=== PATIENT | female | born 1990 | race Caucasian/White ===

== ENCOUNTER 2017-10-04 18:51 | Outpatient (CLI) | payer MEDICAID ==
[2017-10-04] MEDS ORDERED: LACTATED RINGERS 500 ML IV ONE (19:08)
[2017-10-04 19:36] VITALS: BP 119/61
[2017-10-04] MEDS ORDERED: BRETHINE IVP PRN (20:43)
[2017-10-04] MEDS ORDERED: STADOL IV PRN (20:43)
[2017-10-04] MEDS ORDERED: SUBLIMAZE IV PRN (20:43)
[2017-10-04] MEDS ORDERED: PHENERGAN PO PRN (20:43)
[2017-10-04] MEDS ORDERED: XYLOCAINE 2% INFILTRATI ONE (20:43)
[2017-10-04] MEDS ORDERED: POLYCILLIN/NS 2 GM/100 ML 2 GM/100 ML BAG IV ONE (20:43)
[2017-10-04] MEDS ORDERED: NARCAN 0.4 MG/1 ML IV PRN (20:43)
[2017-10-04] MEDS ORDERED: ePHEDrine SULFATE IV PRN (20:43)
[2017-10-04] MEDS ORDERED: MINERAL OIL PO PRN (20:43)
[2017-10-04] MEDS ORDERED: BRETHINE SUB-Q PRN (20:43)
[2017-10-04 20:44] LABS: Bacteria,Urine 1+ /HPF (Negative); Bilirubin,Urine NEG (Negative); Blood,Urine NEG (Negative); Color,Urine Yellow (Yellow); Mucus,Urine FEW /HPF; Protein,Urine <15 mg/dL mg/dL (Negative); RBC,Urine < 1.0 /HPF (0.0-6.0); Urobilinogen,Urine < 2.0 mg/dL (<2.0)
[2017-10-04] MEDS ORDERED: PITOCin/NS 20 UNIT/1000ML DRIP 20 UNITS/1,000 ML BAG IV SCH (21:00)
[2017-10-04] MEDS ORDERED: LACTATED RINGERS 1,000 ML IV SCH (21:00)
[2017-10-04] MEDS ORDERED: PITOCin/NS 30 UNIT/500ML 30 UNITS/500 ML BAG IV SCH ×2 (21:00)
== END 2017-10-04 21:41 | disposition home or self-care (01) ==
LOC: TRG 18:51
PROVIDERS: ATTEND Obstetrics & Gynecology
DX: O47.02 False labor before 37 completed weeks of gestation, second trimester (principal); Z3A.24 24 weeks gestation of pregnancy
CPT/HCPCS: 59025; 81001

== ENCOUNTER 2018-01-14 03:53 | Inpatient (IN) | payer MEDICAID ==
--- NOTE | 2018-01-14 06:06 | Ultrasound Report ---
FINAL REPORT EXAM: US OB BPP WO NON-STRESS HISTORY: NON-REACTIVE NST TECHNIQUE: A limited OB sonogram was obtained for evaluation of the biophysical profile. FINDINGS: For breathing movements, a score of 2 out of 2 was obtained. For movements, a score of 2 out of 2 was obtained. For posture in tone, a score of 2 out of 2 was obtained. For qualitative amniotic fluid volume, a score of 2 out of 2 was obtained. The total biophysical profile score is 8 out of 8. The heart rate is 128 BPM. IMPRESSION: Biophysical profile score of 8/8. heart rate is 128 BPM.
[2018-01-14] MEDS ORDERED: SUBLIMAZE IV ONE (07:07)
[2018-01-14] MEDS ORDERED: XYLOCAINE 2% INFILTRATI NR (07:30)
[2018-01-14] MEDS ORDERED: ZOFRAN IV PRN ×2 (07:30→15:29)
[2018-01-14] MEDS ORDERED: SUBLIMAZE IV PRN (07:30)
[2018-01-14] MEDS ORDERED: STADOL IV PRN (07:30)
[2018-01-14] MEDS ORDERED: ePHEDrine SULFATE IV PRN ×2 (07:30→09:30)
[2018-01-14] MEDS ORDERED: PITOCin/NS 20 UNIT/1000ML DRIP 20 UNITS/1,000 ML BAG IV SCH ×3 (08:00→16:00)
[2018-01-14] MEDS ORDERED: BRETHINE IVP PRN (08:00)
[2018-01-14] MEDS ORDERED: LACTATED RINGERS 1,000 ML IV SCH (08:00)
[2018-01-14] MEDS ORDERED: MINERAL OIL PO PRN (08:00)
[2018-01-14] MEDS ORDERED: NARCAN 0.4 MG/1 ML IV PRN (08:00)
[2018-01-14] MEDS ORDERED: BRETHINE SUB-Q PRN (08:00)
[2018-01-14] MEDS ORDERED: PITOCin/NS 30 UNIT/500ML 30 UNITS/500 ML BAG IV SCH (08:00)
[2018-01-14 08:06] LABS: Hematocrit 35.1 % (30.3-42.9); Hemoglobin 11.9 gm/dl (10.1-14.3); Mean Corpuscular HGB Conc 34 % (30-34); Mean Corpuscular Hemoglobin 28 pg (28-32); Mean Corpuscular Volume 84 fl (79-97); Platelet Count 157 K/mm3 (140-440); Red Blood Count 4.17 M/mm3 (3.65-5.03); Red Cell Distribution Width 15.7 % (13.2-15.2)
[2018-01-14] MEDS: LACTATED RINGERS 1,000 ML IV SCH ×4 (08:12→14:51)
--- NOTE | 2018-01-14 09:11 | Anesthesia Consultation ---
Anesthesia Consult and Med Hx Date of service: 01/14/18 - Airway Anesthetic Teeth Evaluation: Good ROM Head & Neck: Adequate Mental/Hyoid Distance: Adequate Mallampati Class: Class II Intubation Access Assessment: Probably Good - Pre-Operative Health Status ASA Pre-Surgery Classification: ASA2 Proposed Anesthetic Plan: Epidural, Spinal - Pulmonary Hx Asthma: No COPD: No Hx Pneumonia: Yes (10yrs ago) - Cardiovascular System Hx Hypertension: No - Central Nervous System Hx Seizures: No Hx Psychiatric Problems: Yes (depression) - Endocrine Hx Renal Disease: No Hx End Stage Renal Disease: No Hx Hypothyroidism: No Hx Hyperthyroidism: No - Hematic Hx Anemia: No Hx Sickle Cell Disease: No - Other Systems Hx Alcohol Use: No
[2018-01-14] MEDS ORDERED: NARCAN 2 MG/2 ML IV PRN (09:30)
[2018-01-14] MEDS ORDERED: fentaNYL-BUPIV 2 MCG/ML-0.125% 200 MCG/100 ML BAG EPIDURAL SCH (10:00)
[2018-01-14] MEDS ORDERED: PNEUMOVAX 23 IM ONE (12:00)
--- NOTE | 2018-01-14 15:24 | History and Physical Report ---
History of Present Illness Date of examination: 01/14/18 Date of admission: 01/14/18 03:54 Chief complaint: contractions History of present illness: This is a 28 yo at 38+6 weeks admitted to labor and delivery for active labor. She was checked and progressed to 6cm from 4cm. She is a patient of [facility] since 10 weeks. Problem list include nausea, UTi with E.coli treated. Patient on zoloft for depression Past History Past Medical History: hematologic disorders, other Past Surgical History: no surgical history Family/Genetic History: diabetes, other (hypercholesterolemia ) Social history: no significant social history, . denies: smoking, alcohol abuse, prescription drug abuse - Obstetrical History Expected Date of Delivery: 01/22/18 Actual Gestation: 38 Week(s) 6 Day(s) : 2 Para: 1 Hx # Term Pregnancies: 1 Number of Pregnancies: 0 Spontaneous Abortions: 0 Induced : 0 Number of Living Children: 1 Medications and Allergies Allergies Allergy/AdvReac Type Severity Reaction Status Date / Time No Known Allergies Allergy Unverified 10/04/17 19:07 Home Medications Medication Instructions Recorded Confirmed Last Taken Type Vit-Fe Fumar-FA [ 1 tab PO QDAY 01/14/18 01/14/18 01/13/18 History Vitamin] Sertraline [Zoloft] 50 mg PO QDAY 01/14/18 01/14/18 2 Months Ago History ~11/14/17 Active Meds: Active Medications Butorphanol Tartrate (Stadol) 2 mg IV Q2H PRN PRN Reason: Labor Pain Ephedrine Sulfate (Ephedrine Sulfate) 10 mg IV Q2M PRN PRN Reason: Hypotension Fentanyl (Sublimaze) 100 mcg IV Q2H PRN PRN Reason: Labor Pain Last Admin: 01/14/18 08:14 Dose: 100 mcg Lactated Ringer's (Lactated Ringers) 1,000 mls @ 125 mls/hr IV DIRECT SARAH Last Admin: 01/14/18 14:51 Dose: 125 mls/hr Oxytocin/Sodium Chloride (Pitocin/Ns 20 Unit/1000ml Drip) 20 units in 1,000 mls @ 125 mls/hr IV DIRECT SARAH Last Admin: 01/14/18 15:14 Dose: 125 mls/hr Oxytocin/Sodium Chloride (Pitocin/Ns 30 Unit/500ml) 30 units in 500 mls @ 4 mls /hr IV TITR SARAH; Protocol Last Admin: 01/14/18 13:40 Dose: 4 ml/hr, 4 mls/hr Fentanyl/Bupivacaine/Sodium Chlor (Fentanyl-Bupiv 2 Mcg/Ml-0.125%) 200 mcg in 100 mls @ 12 mls/hr EPIDURAL TITR SARAH; Protocol Last Admin: 01/14/18 09:53 Dose: 12 mls/hr Lidocaine (Xylocaine 2%) 20 ml INFILTRATI ONCE NR Stop: 01/15/18 07:29 Mineral Oil (Mineral Oil) 30 ml PO QHS PRN PRN Reason: Constipation Naloxone HCl (Narcan 0.4 Mg/1 Ml) 0.1 mg IV Q2MIN PRN PRN Reason: Res Rate </= 8 or 02 SAT < 92% Naloxone HCl (Narcan 2 Mg/2 Ml) 0.2 mg IV Q5M PRN PRN Reason: Respiratory sedation Ondansetron HCl (Zofran) 4 mg IV Q8H PRN PRN Reason: Nausea And Vomiting Terbutaline Sulfate (Brethine) 0.25 mg SUB-Q ONCE PRN PRN Reason: Hyperstimulation/Hypertonicity Terbutaline Sulfate (Brethine) 0.25 mg IVP ONCE PRN PRN Reason: Hyperstimulation/Hypertonicity Review of Systems All systems: negative Genitourinary: contractions - Vital Signs Vital signs: Vital Signs Temp Resp 97.8 F 18 01/14/18 04:04 01/14/18 04:04 Temp Pulse Resp BP Pulse Ox 96.2 F L 104 H 20 179/63 97 01/14/18 07:24 01/14/18 15:21 01/14/18 08:14 01/14/18 15:16 01/14/18 15:21 - Physical Exam Breasts: Positive: normal Cardiovascular: Regular rate, Normal S1 Lungs: Positive: Clear to auscultation, Normal air movement Abdomen: Positive: normal appearance, soft, normal bowel sounds. Negative: distention, tenderness, guarding Genitourinary (Female): Positive: normal external genitalia, normal perenium Vulva: both: normal Vagina: Positive: normal moisture Cervix: Positive: lesion Uterus: Positive: normal size Anus/Rectum: Positive: normal perianal skin, heme negative Extremities: Positive: normal Deep Tendon Reflex Grade: Normal +2 - Obstetrical FHR: category 1 Cervical Dilatation: 6 Results Result Diagrams: 01/14/18 07:45 Abnormal lab results 01/14/18 Range/Units 07:45 RDW 15.7 H (13.2-15.2) % All other labs normal. Assessment and Plan A/P IUP 38+6 weeks Active labor GBS neg offer epidural expect vaginal delivery
[2018-01-14] MEDS ORDERED: PHENERGAN PR PRN (15:29)
[2018-01-14] MEDS ORDERED: BENADRYL PO PRN (15:29)
[2018-01-14] MEDS ORDERED: DULCOLAX PR PRN (15:29)
[2018-01-14] MEDS ORDERED: ANUCORT-HC PR PRN (15:29)
[2018-01-14] MEDS ORDERED: PERCOCET 5/325 PO PRN (15:29)
[2018-01-14] MEDS ORDERED: PHENERGAN PO PRN (15:29)
[2018-01-14] MEDS ORDERED: TUCKS PAD TP PRN (15:29)
[2018-01-14] MEDS ORDERED: LANSINOH TP PRN (15:29)
[2018-01-14] MEDS ORDERED: MILK OF MAGNESIA PO PRN (15:29)
[2018-01-14] MEDS ORDERED: TYLENOL PO PRN (15:29)
--- NOTE | 2018-01-14 15:45 | Procedure Note ---
OB Delivery Note - Delivery Date of Delivery: 01/14/18 Surgeon: DANA OCHOA Estimated blood loss: 300cc - Vaginal Delivery presentation: vertex Delivery position: OA Intrapartum events: none Delivery induction: none Delivery augmentation: pitocin Delivery monitor: external FHT, external uterine Route of delivery: Delivery placenta: spontaneous Delivery cord: 3 umbilical vessels Episiotomy: none Delivery laceration: 1st degree Delivery repair: vicryl Anesthesia: epidural Delivery comments: Patient was noted to be c/c/+2. She commenced to pushing and delivered a viable male at 1507 . weight is 7 pounds 6.9 oz . Apgars 8 and 9 . The baby delivered shoulders easily and placed on baby skin to skin with cord clamped and cut. nasopharynx and orophaynx suctioned. Placenta delivered intact with three vessel cord at 1510 Survery of perineum revealed a first degree preineum and periurethral. 2-0 vicryl used to repair. Excellent hemostasis. EBL is 300 cc. - A at 1 minute: 8 at 5 minutes: 9 Gender: Male
[2018-01-14] MEDS ORDERED: SODIUM CHLORIDE FLUSH SYRINGE 10 ML IV NR (16:00)
[2018-01-14] MEDS: MOTRIN PO SCH ×2 (18:00→22:00)
[2018-01-14] MEDS: NORCO 5/325 PO PRN (22:25)
[2018-01-14] MEDS: COLACE PO SCH (22:25)
[2018-01-15 03:32] LABS: Hematocrit 28.4 % (30.3-42.9); Hemoglobin 9.7 gm/dl (10.1-14.3)
[2018-01-15] MEDS: COLACE PO SCH ×2 (12:42→21:40)
[2018-01-15] MEDS: MOTRIN PO SCH ×3 (12:42→23:47)
[2018-01-15] MEDS: PRENATAL VITAMIN PO SCH (12:42)
--- NOTE | 2018-01-15 16:36 | Progress Note ---
Assessment and Plan O: VSS AF PP H/H: 9.7/28.4 A: Stable PP Day 1 Anemia P: Iron BID D/c in am Subjective - Subjective Date of service: 01/15/18 Patient reports: appetite normal, voiding normally, pain well controlled, ambulating normally : doing well, nursing well, bottle feeding Objective - Vital Signs Latest vital signs: Vital Signs Temp Pulse Resp BP BP Pulse Ox 01/15/18 12:23 98.7 F 83 20 111/61 96 01/15/18 07:32 98.2 F 86 20 103/63 96 01/15/18 00:00 98.2 F 71 18 119/65 96 01/14/18 20:00 98.7 F 78 18 116/63 97 01/14/18 17:05 98.8 F 71 18 127/75 98 01/14/18 16:54 68 98 01/14/18 16:49 68 128/74 98 01/14/18 16:41 78 97 Intake and Output 01/15/18 01/15/18 01/15/18 06:59 14:59 22:59 Intake Total 240 600 Output Total 500 Balance 240 100 Intake: Oral 240 600 Output: Urine 500 Void 500 Other: Total, Intake Amount 240 240 Total, Output Amount 500 # Voids Void 1 1 - Exam Breasts: Present: deferred Abdomen: Present: normal appearance, soft. Absent: distention, tenderness Uterus: Present: normal, firm, fundal height below umbilicus. Absent: bogginess Extremities: Present: normal, edema (trace) - Labs Labs: Abnormal lab results 01/15/18 Range/Units 03:03 Hgb 9.7 L (10.1-14.3) gm/dl Hct 28.4 L D (30.3-42.9) %
--- NOTE | 2018-01-15 16:40 | Discharge Summary ---
Providers - Providers Date of Admission: 01/14/18 03:54 Date of discharge: 01/16/18 Attending physician: DANA OCHOA MD Primary care physician: DANA OCHOA MD Hospitalization Reason for admission: active labor, IUP at term Delivery: Episiotomy: none Laceration: 1st degree Other procedures: none complications: none Discharge diagnosis: IUP at term delivered baby: male Condition at discharge: Good Disposition: DC-01 TO HOME OR SELFCARE Plan - Discharge Medications Prescriptions: Ibuprofen [Motrin 600 MG tab] 600 mg PO Q6H #30 tablet - Provider Discharge Summary Activity: routine, no sex for 6 weeks, no heavy lifting 4 weeks, no strenuous exercise Diet: routine Instructions: routine Additional instructions: [] Smoking cessation referral if applicable(refer to patient education folder for contact #) [] Refer to [facility] Booklet Call your doctor immediately for: * Fever > 100.5 * Heavy vaginal bleeding ( >1 pad per hour) * Severe persistent headache * Shortness of breath * Reddened, hot, painful area to leg or breast * Drainage or odor from incision. * Keep incision clean and dry at all times and follow doctor's instructions regarding bathing/showering - Follow up plan Follow up: DANA OCHOA MD [Primary Care Provider] - 7 Days (RTO 4 weeks PP)
[2018-01-15] MEDS: NORCO 5/325 PO PRN (16:50)
[2018-01-15] MEDS: FEOSOL PO SCH (21:40)
[2018-01-16] MEDS: MOTRIN PO SCH ×2 (05:06→12:35)
[2018-01-16 11:42] LABS: Hematocrit 29.5 % (30.3-42.9); Hemoglobin 9.7 gm/dl (10.1-14.3)
[2018-01-16] MEDS ORDERED: SUDAFED PO PRN (12:34)
[2018-01-16] MEDS: PRENATAL VITAMIN PO SCH (12:35)
[2018-01-16] MEDS: FEOSOL PO SCH (12:35)
[2018-01-16] MEDS ORDERED: PROVENTIL IH PRN (12:35)
[2018-01-16] MEDS: COLACE PO SCH (12:35)
[2018-01-16] MEDS ORDERED: BENADRYL PO PRN (12:36)
--- NOTE | 2018-01-16 12:39 | Event Note ---
Date: 01/16/18 On-call MD contacted by THA Nolen for this patient with report of dizziness with ambulation and waking. Pt interviewed. She reports feeling dizziness during labor when she received an IV medicine and then since the delivery with ambulation. She also reports dyspnea and feeling like she cannot fill her lungs. She denies any medical history. AVSS. Plan to begin Benadryl and Sudafed. Discharge currently held. Albuterol Neb for dyspnea. Continue to closely monitor clinical status.
[2018-01-16] MEDS: CLARITIN PO SCH (13:38)
[2018-01-16] MEDS ORDERED: FIORICET PO PRN (17:18)
[2018-01-17] MEDS: MOTRIN PO SCH ×5 (01:04→11:19)
[2018-01-17 10:32] VITALS: BP 120/80
[2018-01-17] MEDS: PRENATAL VITAMIN PO SCH (11:10)
[2018-01-17] MEDS: CLARITIN PO SCH (11:10)
[2018-01-17] MEDS: FEOSOL PO SCH ×2 (11:10→11:11)
[2018-01-17] MEDS: COLACE PO SCH ×2 (11:11→11:12)
--- NOTE | 2018-01-17 11:48 | Event Note ---
Date: 01/17/18 Pt with nasal congestion, sneezing and runny nose consistent with seasonal allergies versus a cold. She reports feeling better today and would like to go home. The patient will be discharged with Claritin and may take Sudafed as needed.
== END 2018-01-17 13:10 | disposition home or self-care (01) | DRG 775 ==
LOC: TRG 03:53 → LD 03:54 → TRG 03:59 → OB 17:03
PROVIDERS: ADMIT Obstetrics & Gynecology; ATTEND Obstetrics & Gynecology
PROC: 3E0234Z Introduction of Serum, Toxoid and Vaccine into Muscle, Percutaneous Approach (ICD-10-PCS; principal; 2018-01-14)
PROC: 10E0XZZ Delivery of Products of Conception, External Approach (ICD-10-PCS; 2018-01-14)
PROC: 0HQ9XZZ Repair Perineum Skin, External Approach (ICD-10-PCS; 2018-01-14)
PROC: 3E0R3BZ Introduction of Anesthetic Agent into Spinal Canal, Percutaneous Approach (ICD-10-PCS; 2018-01-14)
PROC: 00HU33Z Insertion of Infusion Device into Spinal Canal, Percutaneous Approach (ICD-10-PCS; 2018-01-14)
DX: O99.344 Other mental disorders complicating childbirth (principal); Z3A.38 38 weeks gestation of pregnancy; Z37.0 Single live birth; Z23 Encounter for immunization; F32.9 Major depressive disorder, single episode, unspecified; O70.0 First degree perineal laceration during delivery; Z87.01 Personal history of pneumonia (recurrent); Z83.3 Family history of diabetes mellitus; Z83.49 Family history of other endocrine, nutritional and metabolic diseases; O23.40 Unspecified infection of urinary tract in pregnancy, unspecified trimester; B96.20 Unspecified Escherichia coli [E. coli] as the cause of diseases classified elsewhere
CPT/HCPCS: 36415; 76819; 85014; 85018; 85027; 86592; 86850; 86900; 86901; 90732; 94640; 99211; A6250; G0463; J2590; J3010; J7120